=== PATIENT | male | born 1950 | race Caucasian/White ===

== ENCOUNTER → 2020-10-12 | Outpatient (CLI) | payer MEDICARE ==
[~2020-10-12] VITALS: Ht 175.3 cm; Wt 79.8 kg
[~2020-10-12] MED LIST: ALDACTONE 25MG25 MG PO; BYSTOLIC5 MG PO; CATAPRES0.3 MG PO; CLONIDINE HCL0.3 MG PO; FERROUS SULFAT325 MG PO; FLOMAX 0.4 MG0.4 MG PO; FLONASE 0.05% N16 GM; LANSOPRAZOLE30 MG PO; LORAZEPAM2 MG PO; PREDNISONE20 MG PO; PROCARDIA XL60 MG PO
== END ==
LOC: OPSV 06:57
DX: M31.7 Microscopic polyangiitis (principal)
CPT/HCPCS: 96365; 96366; 96413; 96415; J7030; J9312

== ENCOUNTER → 2021-04-12 | Outpatient (CLI) | payer MEDICARE ==
[~2021-04-12] VITALS: Ht 175.3 cm; Wt 79.8 kg
== END ==
LOC: OPSV 02-26 09:00
DX: M31.7 Microscopic polyangiitis (principal)
CPT/HCPCS: 96375; 96413; 96415; J2930; J7030; J9312